=== PATIENT | male | born 1965 | race Caucasian/White ===

== ENCOUNTER → 2024-12-31 09:27 | Outpatient (REF) | payer OTHER, BC, SELFPAY | LOC: PAVMRI 09:27 | PROVIDERS: ATTENDING PHYSICIAN Student in an Organized Health Care Education/Training Program | DX: M54.50 Low back pain, unspecified (principal); M48.061 Spinal stenosis, lumbar region without neurogenic claudication; M47.816 Spondylosis without myelopathy or radiculopathy, lumbar region; M54.16 Radiculopathy, lumbar region | CPT/HCPCS: 72148 ==